=== PATIENT | female | born 2000 ===

== ENCOUNTER 2021-09-29 11:28 | Emergency (ER) | payer SELFPAY ==
[~2021-09-29] VITALS: Ht 170.2 cm; Wt 102.1 kg
[2021-09-29] MEDS ORDERED: KETOROLAC TROMETH 60MG/2ML VIAL IM ONE (12:30)
[2021-09-29] MEDS ORDERED: IBUP800T27 PO (14:14)
[2021-09-29] MEDS ORDERED: METH750T22 PO (14:14)
[2021-09-29 14:34] VITALS: BP 134/84
== END 2021-09-29 14:46 | disposition home or self-care (01) ==
LOC: EDSEX 11:28 → ER 11:28
DX: S83.92XA Sprain of unspecified site of left knee, initial encounter (principal); S39.012A Strain of muscle, fascia and tendon of lower back, initial encounter; W19.XXXA Unspecified fall, initial encounter; Y93.89 Activity, other specified; Y92.89 Other specified places as the place of occurrence of the external cause; Y99.8 Other external cause status
CPT/HCPCS: 72100; 73562; 96372; 99284; J1885